=== PATIENT | female | born 1960 | race Caucasian/White ===

== ENCOUNTER 2016-09-26 16:59 | Emergency (ER) | payer MEDICARE, MEDICAID, OTHER ==
[~2016-09-26] VITALS: Ht 152.4 cm; Wt 48.0 kg
[~2016-09-26 16:59] MED LIST: BETASERON SUBCUT; HYDR-519 PO; INTERFERON; TIZA-19 PO; XANAX
[2016-09-26 21:58] VITALS: BP 127/71
[2016-09-26] MEDS ORDERED: HYDROCODONE/ACETAMINOPHEN 5/325MG TABLET PO ONE (22:00)
== END 2016-09-26 22:58 | disposition home or self-care (01) ==
LOC: ER 16:59
DX: R51 Headache (principal); G35 Multiple sclerosis; G89.29 Other chronic pain; J45.909 Unspecified asthma, uncomplicated
CPT/HCPCS: 99283